=== PATIENT | female | born 1995 | race Caucasian/White ===

== ENCOUNTER 2024-03-12 12:00 | Emergency (ER) | payer SELFPAY, OTHER ==
[2024-03-12] MEDS ORDERED: Ibuprofen 200 MG TAB ONE (12:57)
== END 2024-03-12 13:36 | disposition home or self-care (01) ==
LOC: CSHERS 12:00
DX: M25.512 Pain in left shoulder (principal); V49.49XA Driver injured in collision with other motor vehicles in traffic accident, initial encounter
CPT/HCPCS: 99284